=== PATIENT | female | born 1970 | race Caucasian/White ===

== ENCOUNTER 2018-07-06 00:30 | Outpatient (CLI) | payer BC, SELFPAY ==
--- NOTE | 2018-07-06 12:56 | DI.MAMMO_ITS ---
SYMPTOM/DIAGNOSIS: SCREENING, Z12.39 MAMMOGRAMS: Mammograms were interpreted according to the usual protocol including computer analysis with CAD system, tomosynthesis and C view imaging. The breast tissue is of moderate radiodensity. A region of asymmetric increased density is again noted in the upper outer quadrant of the left breast. There is no evidence of a dominant mass. There are no suspicious calcifications and there has been no significant interval change when compared with prior examinations. SUMMARY: No evidence of malignancy, category 1. Yearly screening mammography is recommended. Breast density, Category B. MQSA ASSESSMENT OF FINDINGS: Negative. Category 1. Patient will receive a letter notifying them of these results. BI-RADS category B. There are scattered areas of fibroglandular density.
== END 2018-07-06 00:50 ==
PROVIDERS: PCP Nurse Practitioner; Visit Provider Nurse Practitioner
DX: Z12.31 Encounter for screening mammogram for malignant neoplasm of breast (principal)
CPT/HCPCS: 77063; 77067

== ENCOUNTER 2018-12-17 02:26 | Outpatient (CLI) | payer BC, SELFPAY ==
[2018-12-17 07:35] LABS: HCT 40.5 % (36.0-46.0); HGB 13.8 g/dL (12.0-15.5); Mean Corp. HGB Concentration 34.1 g/dL (32.0-36.0); Mean Corpuscular Hemoglobin 30.5 pg (27.0-33.0); Mean Corpuscular Volume 89.4 fL (80-95); Mean Platelet Volume 9.5 fL (8.0-11.0); Platelet Count 345 x1000/uL (130-400); RBC 4.53 m/cumm (4.00-5.20); RBC Distribution Width 12.9 % (11.7-14.6); White Blood Cell Count 7.91 k/cumm (4.4-10.8)
[2018-12-17 07:50] LABS: Hemoglobin A1C 5.7 % (4.5-6.2)
[2018-12-17 07:57] LABS: BUN 12 mg/dL (7-18); CREATININE 0.79 mg/dL (0.55-1.02); Calcium 8.9 mg/dL (8.5-10.1); Chloride 104 mmol/L (98-107); Glucose 109 mg/dL (70-100); Potassium 3.6 mmol/L (3.5-5.1); Sodium 139 mmol/L (136-145); TSH (W/Ref FT4) 2.74 uIU/mL (0.36-3.74)
== END 2018-12-17 02:46 ==
PROVIDERS: PCP Nurse Practitioner; Visit Provider Family Medicine
DX: E03.9 Hypothyroidism, unspecified (principal); I10 Essential (primary) hypertension; R73.09 Other abnormal glucose
CPT/HCPCS: 36415; 80048; 85027; 83036; 84443

== ENCOUNTER 2019-11-11 09:09 | Outpatient (REF) | payer BC, SELFPAY ==
[2019-11-11 22:20] LABS: Hemoglobin A1C 5.8 % (3.8-5.6)
[2019-11-11 22:41] LABS: ALT 30 U/L (14-59); AST 19 U/L (15-37); Albumin 4.2 g/dL (3.4-5.0); Alkaline Phosphatase 69 U/L (46-116); Anion Gap 9.4 mmol/L (3-11); BUN 17 mg/dL (7-18); Bilirubin, Total 0.4 mg/dL (0.2-1.0); CO2 27.6 mmol/L (21.0-32.0); CREATININE 0.82 mg/dL (0.55-1.02); Calcium 9.3 mg/dL (8.5-10.1); Chloride 104 mmol/L (98-107); Glucose 104 mg/dL (74-106); Potassium 4.4 mmol/L (3.5-5.1); Sodium 141 mmol/L (136-145); TSH (W/Ref FT4) 2.86 uIU/mL (0.36-3.74); Total Protein 6.9 g/dL (6.4-8.2)
== END 2019-11-11 09:29 ==
LOC: NCHCN 09:09
PROVIDERS: PCP Nurse Practitioner; Visit Provider Nurse Practitioner
DX: I10 Essential (primary) hypertension (principal); E03.9 Hypothyroidism, unspecified; R73.03 Prediabetes; E66.9 Obesity, unspecified
CPT/HCPCS: 80053; 83036; 84443

== ENCOUNTER 2020-02-27 00:42 | Outpatient (CLI) | payer BC, SELFPAY ==
--- NOTE | 2020-02-27 16:09 | DI.MAMMO_ITS ---
EXAM: MG MAMMO SCREENING CLINICAL HISTORY: screening,z12.39. TECHNIQUE: Bilateral full field digital CC and MLO mammographic images were obtained with 3D tomosyn thesis and utilizing computer aided detection (CAD). COMPARISON: Prior mammograms dating back to 2015, the most recent being June 2018. FINDINGS: There are no new dominant masses nor malignant appearing microcalcification groups. Asymmetric densit y medially in the right breast is unchanged from prior studies. There is no new architectural distor tion nor skin thickening-retraction. IMPRESSION: No radiographic evidence of malignancy. BI-RADS Category 1 - Negative Breast Density - Category B - Scattered areas of fibroglandular density Breast density Category C or D implies that the patient has dense breast tissue. Dense breast tissue can make it harder to find cancer on a mammogram. Dense breast tissue is also associated with an incr eased risk of breast cancer. This information about the result of the mammogram report was provided to the patient to raise their awareness. Use this report when you speak with the patient about their risks for breast cancer, which includes their family history. At that time, you may recommend additional screening tests (Ultrasoun d or MRI) as these tests may add significant information. A negative radiographic report should not delay biopsy if a dominant or clinically suspicious mass is present. Up to ten percent of cancers are not identified on mammography. A negative report may reinforce clinical impression. Adenosis and dense breasts may obscure an underlying neoplasm. False positive reports average 6 to 10%. Patient will receive a letter notifying them of these results.
== END 2020-02-27 01:02 ==
PROVIDERS: PCP Nurse Practitioner; Visit Provider Obstetrics & Gynecology Gynecology
DX: Z12.31 Encounter for screening mammogram for malignant neoplasm of breast (principal); R92.8 Other abnormal and inconclusive findings on diagnostic imaging of breast
CPT/HCPCS: 77063; 77067

== ENCOUNTER 2020-12-28 16:12 | Outpatient (REF) | payer BC, SELFPAY ==
[2020-12-28 16:15] LABS: ALT 50 U/L (14-59); AST 24 U/L (15-37); Albumin 4.4 g/dL (3.4-5.0); Alkaline Phosphatase 86 U/L (46-116); Anion Gap 9.7 mmol/L (3-11); BUN 13 mg/dL (7-18); Bilirubin, Total 0.7 mg/dL (0.2-1.0); CO2 28.3 mmol/L (21.0-32.0); CREATININE 0.9 mg/dL (0.55-1.02); Chloride 104 mmol/L (98-107); Glucose 96 mg/dL (74-106); Potassium 4.1 mmol/L (3.5-5.1); Sodium 142 mmol/L (136-145); Total Protein 7.4 g/dL (6.4-8.2)
[2020-12-28 16:18] LABS: Hemoglobin A1C 5.9 % (<5.7)
== END 2020-12-28 16:13 | disposition home or self-care (01) ==
LOC: NCHCN 16:12
PROVIDERS: PCP Nurse Practitioner; Visit Provider Nurse Practitioner
DX: R73.03 Prediabetes (principal); I10 Essential (primary) hypertension
CPT/HCPCS: 80053; 83036

== ENCOUNTER → 2021-09-05 02:40 | Outpatient (CLI) | payer BC, SELFPAY ==
--- NOTE | 2021-09-05 07:40 | DI.MAMMO_ITS ---
Exam(s) MAMMO SCREENING EXAM: MAMMO SCREENING CLINICAL HISTORY: SCREENING, Z12.31. TECHNIQUE: Bilateral full field digital CC and MLO mammographic images were obtained with 3D tomosyn thesis and utilizing computer aided detection (CAD). COMPARISON: Prior mammograms were reviewed, the most recent being February 2020.. FINDINGS: There has been no significant change in the appearance and distribution the fibroglandular tissue. There are no new spiculated masses nor malignant appearing microcalcification groups. There is no significant architectural distortion nor skin thickening-retraction. IMPRESSION: No radiographic evidence of malignancy. BI-RADS Category 1 - Negative Breast Density - Category B - Scattered areas of fibroglandular density Breast density Category C or D implies that the patient has dense breast tissue. Dense breast tissue can make it harder to find cancer on a mammogram. Dense breast tissue is also associated with an incr eased risk of breast cancer. This information about the result of the mammogram report was provided to the patient to raise their awareness. Use this report when you speak with the patient about their risks for breast cancer, which includes their family history. At that time, you may recommend additional screening tests (Ultrasoun d or MRI) as these tests may add significant information. A negative radiographic report should not delay biopsy if a dominant or clinically suspicious mass is present. Up to ten percent of cancers are not identified on mammography. A negative report may reinforce clinical impression. Adenosis and dense breasts may obscure an underlying neoplasm. False positive reports average 6 to 10%. Patient will receive a letter notifying them of these results.
== END ==
PROVIDERS: PCP Nurse Practitioner; Visit Provider Nurse Practitioner Family
DX: Z12.31 Encounter for screening mammogram for malignant neoplasm of breast (principal)
CPT/HCPCS: 77063; 77067

== ENCOUNTER 2021-12-23 09:04 | Day surgery (SDC) | payer BC, SELFPAY ==
--- NOTE | 2021-12-23 06:48 | COLE_ITS ---
Colonoscopy Report Date of procedure: 12/23/21 Pre-op diagnosis general: Colon Cancer Screening Post-op diagnosis procedure note: other (sigmoid polyp) Procedure: Colonoscopy with polypectomy Surgeon: Ailyn Louise Anesthesia Type: General:No Airway Estimated blood loss (mL): 3 Pathology: other (sigmoid polyp) Complications: None Disposition: same day Indications: The patient? is a pleasant ? 51-year-old female who is here to discuss her first screening colonoscopy. ? She denies any changes in bowel habits, melena, hematochezia, unintentional weight loss or family history of colon cancer.? The procedure and risks were discussed.? The prep was reviewed in detail.? Risks, benefits and complications have been reviewed. Complications include but are not limited to bleeding, pain, perforation, missed small lesion/polyp, sore throat, aspiration and adverse reaction to the medications. Questions were entertained and answered to their satisfaction and they wished to proceed. No guarantees were given or implied. Prep: Miralax/Dulcolax Procedure Start Time: 11:46 Procedure End Time: 12:20 Retraction Time: 10 minutes Findings: one small polyp Procedure Description: After informed consent was obtained the patient was taken to the procedure room and placed in a left decubitous position. Monitors were applied and a time out was done. The patients name, date of , procedure, allergies to medications and metal in their body was reviewed. The patient was then sedated. Once sedated and comfortable a rectal exam was done. External exam was normal. Internal exam revealed a normal sphincter tone and no palpable masses. The scope was then introduced and retro-flexed. No internal hemorrhoids, polyps or masses were identified on retro-flexion. The scope was then advanced to the cecum with some difficulty due to the patient body habitus. The ileocecal vla ve and appendiceal orifice were identified. The prep was adequate. The scope was then slowly retracted over 10 minutes back into the rectum. Polyps were removed with cold forceps in the sigmoid colon x1. There was no diverticulosis noted. The scope was removed and the patient was woken up and taken back to Same day surgery in stable condition. The patient tolerated the procedure well and there were no immediate complications. Follow up: The patient should follow up in [] years unless they develop changes in bowel habits or other new gastrointestinal complaints.
--- NOTE | 2021-12-23 06:49 | W.PM.DSUDISC ---
Discharge Plan Disposition Patient Disposition: HOME Condition: Good Discharge Details Reason For Visit: colonoscopy Attending Provider: Ailyn Louise Primary Care Provider: Kari Phillips Home Meds and New Rx's Prescriptions: Continued multivitamin Tablet 1 tab PO DAILY cetirizine 5 mg tablet 5 mg PO DAILY PRN labetalol 200 MG tablet 200 mg PO DAILY rizatriptan [Maxalt] 10 MG tablet 10 mg PO PRN aspirin [Aspir-81] 81 MG tablet,delayed release (DR/EC) 81 mg PO DAILY chlorthalidone 25 MG tablet 12.5 mg PO ONCE Label Comments: Takes 1/2 tab daily losartan 25 MG tablet 50 mg PO DAILY ibuprofen [Advil Liqui-Gel] 200 MG capsule 400 mg PO DAILY PRN calcium carb and citrate-vitD3 1 EACH tablet extended release 1 tab PO DAILY Discontinued bisacodyl [Dulcolax (bisacodyl)] 5 mg tablet,delayed release (DR/EC) 5 mg PO ONCE Qty: 4 0RF Rx Instructions: Take according to provider's instructions for colonoscopy prep. polyethylene glycol 3350 17 gram/dose powder 17 g PO ONCE Qty: 238 0RF Rx Instructions: To be taken as directed by prescriber's office for colonoscopy prep. Discharge Instructions Instructions: Colorectal Polyps (DC) Additional Instructions: Findings: 1 polyp Follow up: 5 years Please call if you develop: fevers >101.5 Nausea or Vomiting Abdominal pain that is not transient Rectal bleeding that is more then a tbsp A hard abdomen and inability to pass gas DAY SURGERY UNIT POST ENDOSCOPY INSTRUCTIONS Instructions for everyone who is given Anesthesia: For your safety, please do the following for the next 24 Hours: a. Do not drive or operate dangerous equipment b. Do not drink alcohol beverages or use any recreational drugs for the first 24 hours or while taking pain medications. The medications in your body may have a reaction that can be dangerous. c. Do not make any important decisions or sign any important papers 1. Generally there are no restrictions on your activity after a day or so has gone by, but you may feel a bit fatigued for a few days. 2. After you arrive home you may have a light meal and return to a normal diet as you can tolerate it without feeling sick to your stomach. 3. After surgery, you may feel pain or discomfort. This should be only transient, but if it persists please contact your doctor. 4. If there are any questions regarding the findings of your procedure, please feel free to contact your doctor. 6. If you are unable to contact your doctor with a problem, contact the hospital at [phone]. 7. Continue all your regular medications unless directed otherwise. I understand the above instructions and have no questions. Signature of Patient or Responsible Adult Escort Date/Time Name of Responsible Adult Escort Signature of Nurse Date/Time Activity:: Activity as Tolerated Diet:: As Tolerated Discharge Orders Discharge Orders: Discharge Order (Routine); Ordered 12/23/21 Ordered By: Ailyn Louise
[2021-12-23 09:23] VITALS: BP 151/104; PULSE 95; RESP 20; TEMP 36.6; O2SAT 99
[2021-12-23] MEDS: Lactated Ringers 1,000 ML 80 ML IV (10:20)
--- NOTE | 2021-12-23 11:10 | W.ANESPRE ---
General Info Date of Service Date Performed: 12/23/21 Height: 5 ft 7 in Weight: 118.855 kg Body Mass Index (BMI): 41.0 Surgical Procedure: Operation Date: 12/23/21 10:35 Proposed Procedure Side Surgeon p Colonoscopy Ailyn Louise MD Meds Allergies and Home Medications Allergies Allergy/AdvReac Type Severity Reaction Status Date / Time amlodipine Allergy Mild Swelling/Ed Verified 12/20/21 11:34 kwaku tunafish AdvReac diarrhea Uncoded 12/20/21 11:34 Home Medication Medication Instructions Recorded aspirin 81 mg tablet,delayed 81 mg PO DAILY 10/29/12 release (Aspir-) labetalol 200 mg tablet 200 mg PO DAILY 10/29/12 rizatriptan 10 mg tablet (Maxalt) 10 mg PO PRN 10/29/12 calcium carb,cit ER 600 mg-vit D3 1 tab PO DAILY 08/08/13 12.5 mcg (500 unit) tablet,ext.rel chlorthalidone 25 mg tablet 12.5 mg PO ONCE 08/08/13 ibuprofen 200 mg capsule (Advil 400 mg PO DAILY PRN 08/08/13 Liqui-Gel) losartan 25 mg tablet 50 mg PO DAILY 07/26/15 bisacodyl 5 mg tablet,delayed 5 mg PO ONCE #4 tabs 12/10/21 release (Dulcolax (bisacodyl)) cetirizine 5 mg tablet 5 mg PO DAILY PRN 12/10/21 multivitamin 1 tab PO DAILY 12/10/21 polyethylene glycol 3350 17 17 g PO ONCE #238 grams 12/10/21 gram/dose oral powder Current Visit Medications: Current Medications Generic Name Dose Route Start Last Admin Trade Name Freq PRN Reason Stop Dose Admin Hyoscyamine Sulfate 0.125 mg 12/23/21 06:49 Hyoscyamine 0.125 Mg Sl/Oral/Chew SL DIRECTED PRN Ringer's Solution 1,000 mls @ 80 mls/hr 12/23/21 06:00 12/23/21 10:20 IV 01/19/22 23:59 80 mls/hr INFUSION ADALBERTO Administration IV Miscellaneous Supplies 1 each 12/23/21 06:00 Iv Access IV 01/19/22 23:59 DIRECTED ADALBERTO Ondansetron HCl 4 mg 12/23/21 06:49 Ondansetron 4 Mg/2 Ml Vial IVP Q4H PRN PRN Nausea / Vomiting Sodium Chloride 0 ml 12/23/21 06:00 Normal Saline Flush 10 Ml Syr IV 01/19/22 23:59 PRN PRN Sodium Chloride 0 ml 12/23/21 06:00 Normal Saline 10 Ml Vial IJ 01/19/22 23:59 DIRECTED PRN Sterile Water 0 ml 12/23/21 06:00 Water,Injection,Sterile 10 Ml Vial IJ 01/19/22 23:59 DIRECTED PRN PFSH Active Problems Active Problems: Problem Status Onset Code BMI 40.0-44.9, adult Z68.41 Screening for colon cancer Z12.11 Medical History Medical History Abnormal ultrasound of pelvis (12/22/16) 14 cm mass arising from uterus noted on pelvic ultrasound 11/2016. Will have MARÍA at [facility] thru Dept GynOnc. Abnormal uterine bleeding (AUB) (12/08/16) endometrial ablation 2013 with continued light menses. Has experienced light breakthrough bleeding in 2016. Benign essential hypertension Family history of uterine cancer (02/06/17) sister with stage 1 uterine cancer. Glucose intolerance (08/08/13) Previously on Metformin. Stopped 2013. 10/2015 Fasting glucose 107. Referred to Nutrition services. Glucose intolerance (impaired glucose tolerance) 2017 restarted metformin. Headache (08/08/13) Headache disorder Surgical History Surgical History Abdominal hysterectomy (02/20/17) MARÍA with ovarian preservation. 24w fibroid uterus. [facility]. Ovaries conserved. Endometrial Ablation (08/18/13) HTA ablation with aoc Ligation of fallopian tube (08/18/13) Laparoscopic BTL at time of endometrial ablation with aoc Tobacco Smoking/Tobacco Use Status: Former Tobacco Use Alcohol Alcohol Intake: current Alcohol intake frequency: a few times a week Substance Use Substance use: Never Substance use type: does not use Prental History History 0 Para Hx # Term Pregnancies 0 Multiple births Hx # Pregnancies Ectopic pregnancies AB induced Hx Number of Living Children AB spontaneous Vital Signs and Lab Results Vital Signs Most Recent Vital Signs in EMR: Most Recent Vital Signs Temp Pulse Resp BP Pulse Ox 36.6 C 95 H 20 151/104 H 99 10/03/22 09:23 12/23/21 09:23 12/23/21 09:23 12/23/21 09:23 12/23/21 09:23 Lab Results Blood Type / Crossmatch: No Data to Display Complete Blood Count: No Data to Display Complete Metabolic Panel: No Data to Display Liver Function Panel: No Data to Display Coagulation Panel: No Data to Display Cardiac Panel: No Data to Display Arterial Blood Gas: No Data to Display Venous Blood Gas: No Data to Display Pancreas Panel: No Data to Display Thyroid Panel: No Data to Display Infectious Disease: No Data to Display Blood Cultures: No Data to Display Toxicology Panel: No Data to Display Panel: No Data to Display Anesthesia Assessment and Plan Anesthesia History Personal History: No History of Anesthesia Complications Family History: No Family History of Anesthesia Complications Exercise Tolerance Exercise Tolerance: Metabolic Equivalents>4 Pertinent Negatives Pertinent Negatives: No Symptoms of GERD, No Major Cardiovascular Symptoms or Complaints, No Major Pulmonary Symptoms or Complaints (MARTITA ?) and No History of CVA/TIA Cardiac & Pulmonary Exam Cardiac Exam: Normal S1/S2 Heart Sounds Pulmonary Exam: Clear Bilateral Breath Sounds Implantable Cardiac Device Does patient have a Pacemaker or an ICD?: No Airway Exam Known Difficult Airway: No Mallampati Class: 1 Mouth Opening: Normal (> 3cm) Thyromental Distance: Greater than 3 cm Neck Range of Motion: Full ROM Neck Circumference: Thick Teeth Condition: Normal Dentition Airway Comments: Multiple crowns back ASA Classification ASA Score: ASA 2 Emergency Case?: No NPO Status NPO Status: NPO Clears >2 hours, Solids >8 hours Status Status: History of Hysterectomy Anesthesia Plan Resuscitation Status: Full Code Anesthesia Technique: General Anesthesia Airway Planned: Natural Airway Monitors Used: Standard Monitors
[2021-12-23 11:14] VITALS: BMI 41.0
--- NOTE | 2021-12-23 12:09 | BOWEL_PTH ---
PATIENT: Heather Krishnan LOC: [facility] U#:[id number] AGE/SX: 51/F ROOM: RE12/23/[address]: Ailyn Louise MD : 1970 BED: DIS: 12/23/2021 SPEC #: [id number] RECD: 12/23/21 16:28 STATUS: FRANCES REQ #: [id number] PRADEEP: 12/23/21 12:[address]: Ailyn Louise DEPT: Surgical Specimen RECD BY: Ana Boyd ENTERED: 12/23/21 16:29 SP TYPE: Bowel OTHR DR: Kari Phillips Tissues: 1 - BIOPSY BOWEL Procedures: GROSS AND MICRO LEVEL 4 Comments: [id number]
--- NOTE | 2021-12-23 12:22 | W.ANESPOSTOP ---
Postoperative Evaluation Date, Time and Location Date Performed: 12/23/21 Time Performed: 12:22 Patient Location: Day Surgery Unit Vital Signs Most Recent Imported Vital Signs: Most Recent Vital Signs Temp Pulse Resp BP Pulse Ox 36.6 C 95 H 20 151/104 H 99 12/23/21 09:23 12/23/21 09:23 12/23/21 09:23 12/23/21 09:23 12/23/21 09:23 Most Recent Manually Entered Vital Signs: Adult Blood Pressure: 147/89 Heart Rate: 79 Respirations: 12 Oxygen Saturation (%): 100 Temperature (C): 36.5 C Pain Score (0-10 Scale): 0 Pain Score Most Recent Pain Score: Most Recent Pain Score Pain Level 0 12/23/21 09:23 Assessment Mental Status: Awake (Alert & Oriented to Patient Baseline) Airway and Respiratory Function: Patent airway with normal (patient baseline) respiratory exam Cardiovascular Function: Hemodynamically Stable Hydration Status: Adequately Hydrated Nausea & Vomiting: No Nausea or Vomiting Pain: Pain is tolerable per patient Peripheral Nerve Block: Patient did not receive a nerve block Teaching Patient Teaching: Discussed Safe Use of Pain Medication Given Likely or Known MARTITA
[2021-12-23 12:24] VITALS: BP 147/89; PULSE 78; PULSE 79; RESP 12; RESP 18; TEMP 36.5; TEMPC 36.5; O2SAT 100
[2021-12-23 12:40] VITALS: BP 159/92; PULSE 73; RESP 18; TEMP 36.4; O2SAT 99
== END 2021-12-23 13:19 | disposition home or self-care (01) ==
PROVIDERS: PCP Nurse Practitioner; Visit Provider Surgery
PROC: 0DJD8ZZ Inspection of Lower Intestinal Tract, Via Natural or Artificial Opening Endoscopic (ICD-10-PCS; CPT 45378; principal; 2021-12-23 10:30)
DX: Z12.11 Encounter for screening for malignant neoplasm of colon (principal); K63.5 Polyp of colon
CPT/HCPCS: 45380; 88305

== ENCOUNTER 2022-09-11 15:38 | Outpatient (REF) | payer BC, SELFPAY ==
[2022-09-11 19:26] LABS: ALT 46 U/L (14-59); AST 23 U/L (15-37); Albumin 4.2 g/dL (3.4-5.0); Alkaline Phosphatase 90 U/L (46-116); Anion Gap 7.8 mmol/L (3-11); BUN 14 mg/dL (7-18); Bilirubin, Total 0.5 mg/dL (0.2-1.0); CO2 32.2 mmol/L (21.0-32.0); CREATININE 0.9 mg/dL (0.55-1.02); Calcium 9.7 mg/dL (8.5-10.1); Calculated LDL 117 mg/dL (<100); Chloride 103 mmol/L (98-107); Cholesterol 196 mg/dL (<200); Estimated GFR 76.92 (mL/min/1.73m2); Glucose 125 mg/dL (74-106); HDL Cholesterol 51 mg/dL (40-60); Potassium 3.7 mmol/L (3.5-5.1); Sodium 143 mmol/L (136-145); TSH (W/Ref FT4) 2.57 uIU/mL (0.36-3.74); Total Protein 7.3 g/dL (6.4-8.2); Triglyceride 144 mg/dL (<150)
[2022-09-11 19:33] LABS: Abs Immature Grans 0.02 10^3/uL (0.0-0.06); Absolute Basophil Count 0.06 10^3/uL (0.0-0.2); Absolute Eosinophil Count 0.13 10^3/uL (0.0-0.7); Absolute Lymphocyte Count 2.44 10^3/uL (1.2-3.4); Absolute Monocyte Count 0.52 10^3/uL (0.1-0.8); Basophils % 0.8; Eosinophils % 1.7; HCT 42.2 % (36.0-46.0); HGB 14.3 g/dL (11.2-15.7); Immature Grans % 0.3; Lymphocytes % 32.7; MCH 30.1 pg (27.0-33.0); MCHC 33.9 % (32.0-36.0); MCV 89 fL (80-95); MPV 9.9 fL (8.0-11.0); Neutrophils % 57.5; Platelet Count 366 10^3/uL (130-400); RBC 4.75 10^6/uL (3.93-5.22); RDW 12.6 % (11.7-14.6); RDW-SD 41.1 fL; WBC 7.47 10^3/uL (4.4-10.8)
[2022-09-11 20:10] LABS: Hemoglobin A1C 5.9 % (<5.7)
== END 2022-09-11 15:39 | disposition home or self-care (01) ==
LOC: NCHCN 15:38
PROVIDERS: PCP Nurse Practitioner Family; Visit Provider Nurse Practitioner Family
DX: I10 Essential (primary) hypertension (principal); R73.03 Prediabetes; G43.909 Migraine, unspecified, not intractable, without status migrainosus; Z87.891 Personal history of nicotine dependence; Z79.899 Other long term (current) drug therapy; E66.8 Other obesity; Z68.41 Body mass index [BMI] 40.0-44.9, adult
CPT/HCPCS: 80053; 80061; 83036; 84443; 85025

== ENCOUNTER → 2023-01-29 01:02 | Outpatient (CLI) | payer BC, SELFPAY ==
--- NOTE | 2023-01-29 07:45 | DI.MAMMO_ITS ---
Exam(s) MAMMO SCREENING EXAM: MAMMO SCREENING CLINICAL HISTORY: SCREENING MAMMO FOR BREAST CANCER Z12.31. TECHNIQUE: Bilateral full field digital CC and MLO mammographic images were obtained with 3D tomosyn thesis and utilizing computer aided detection (CAD). COMPARISON: Prior mammograms were reviewed. FINDINGS: There has been no significant change in the appearance and distribution of the fibroglandular tissue. There are no new spiculated masses nor malignant appearing microcalcification groups. There is no significant architectural distortion nor skin thickening-retraction. IMPRESSION: No radiographic evidence of malignancy. BI-RADS Category 1 - Negative Breast Density - Category B - Scattered areas of fibroglandular density Breast density Category C or D implies that the patient has dense breast tissue. Dense breast tissue can make it harder to find cancer on a mammogram. Dense breast tissue is also associated with an incr eased risk of breast cancer. This information about the result of the mammogram report was provided to the patient to raise their awareness. Use this report when you speak with the patient about their risks for breast cancer, which includes their family history. At that time, you may recommend additional screening tests (Ultrasoun d or MRI) as these tests may add significant information. A negative radiographic report should not delay biopsy if a dominant or clinically suspicious mass is present. Up to ten percent of cancers are not identified on mammography. A negative report may reinforce clinical impression. Adenosis and dense breasts may obscure an underlying neoplasm. False positive reports average 6 to 10%. Patient will receive a letter notifying them of these results.
== END ==
PROVIDERS: PCP Nurse Practitioner Family; Visit Provider Nurse Practitioner Family
DX: Z12.31 Encounter for screening mammogram for malignant neoplasm of breast (principal); R92.323 Mammographic fibroglandular density, bilateral breasts
CPT/HCPCS: 77063; 77067

== ENCOUNTER 2024-02-04 01:00 | Outpatient (CLI) | payer BC, SELFPAY ==
--- NOTE | 2024-02-04 | DI.MAMMO_ITS ---
Exam(s) MAMMO SCREENING EXAM: MAMMO SCREENING CLINICAL HISTORY: Screening, Z12.31 TECHNIQUE: Mammograms were interpreted according to the usual protocol including computer analysis w [employer] CAD system, tomosynthesis and C-view imaging. COMPARISON: 2015 through 2022 FINDINGS: The breasts are composed of scattered fibroglandular densities, Breast Density category B. No suspicious masses or suspicious microcalcifications are seen. No skin thickening or abnormal axillary lymph nodes are seen. There has been no significant change from prior exams. IMPRESSION: BI-RADS Category 1, Negative mammogram Yearly screening mammography is recommended. Breast Density - Category B, scattered fibroglandular densities. A negative radiographic report should not delay biopsy if a dominant or clinically suspicious mass is present. Up to ten percent of cancers are not identified on mammography. A negative report may reinforce clinical impression. Adenosis and dense breasts may obscure an underlying neoplasm. False positive reports average 6 to 10%. Patient will receive a letter notifying them of these results.
== END 2024-02-04 01:20 ==
LOC: DI 01:00
PROVIDERS: PCP Nurse Practitioner Family; Visit Provider Nurse Practitioner Family
DX: Z12.31 Encounter for screening mammogram for malignant neoplasm of breast (principal); R92.323 Mammographic fibroglandular density, bilateral breasts
CPT/HCPCS: 77063; 77067

== ENCOUNTER 2024-06-15 18:43 | Outpatient (REF) | payer BC, SELFPAY ==
[2024-06-15 19:59] LABS: Anion Gap 10.6 mmol/L (3-11); BUN 14 mg/dL (7-18); CO2 28.4 mmol/L (21.0-32.0); CREATININE 0.8 mg/dL (0.55-1.02); Calcium 10.1 mg/dL (8.5-10.1); Chloride 104 mmol/L (98-107); Glucose 93 mg/dL (74-106); Potassium 3.9 mmol/L (3.5-5.1); Sodium 143 mmol/L (136-145)
== END 2024-06-15 18:44 | disposition home or self-care (01) ==
LOC: NCHCN 18:43
PROVIDERS: PCP Nurse Practitioner Family; Visit Provider Nurse Practitioner Family
DX: I10 Essential (primary) hypertension (principal)
CPT/HCPCS: 80048

== ENCOUNTER → 2025-03-17 00:09 | Outpatient (CLI) | payer BC, SELFPAY ==
--- NOTE | 2025-03-17 08:40 | DI.MAMMO_ITS ---
Exam(s) MAMMO SCREENING EXAM: MAMMO SCREENING CLINICAL HISTORY: screening Z12.39. TECHNIQUE: Bilateral full field digital CC and MLO mammographic images were obtained with 3D tomosynthesis and utilizing computer aided detection (CAD). COMPARISON: Prior mammograms were reviewed. FINDINGS: There has been no significant change in the appearance and distribution of the fibroglandular tissue. There are no CAD designations. No new right breast findings. In the anterior left breast slightly medial of center there is a E well- defined noncalcified nodule measuring 6 x 6 mm which is most probably benign as it is unchanged from 2016 There is no significant architectural distortion nor skin thickening-retraction. IMPRESSION: Stable benign-appearing findings. No radiographic evidence of malignancy. BI-RADS Category 2 - Benign Findings Breast Density - Category B - There are scattered areas of fibroglandular density. Breast density Category C or D implies that the patient has dense breast tissue. Dense breast tissue can make it harder to find cancer on a mammogram. Dense breast tissue is also associated with an increased risk of breast cancer. This information about the result of the mammogram report was provided to the patient to raise their awareness. Use this report when you speak with the patient about their risks for breast cancer, which includes their family history. At that time, you may recommend additional screening tests (Ultrasound or MRI) as these tests may add significant information. A negative radiographic report should not delay biopsy if a dominant or clinically suspicious mass is present. Up to ten percent of cancers are not identified on mammography. A negative report may reinforce clinical impression. Adenosis and dense breasts may obscure an underlying neoplasm. False positive reports average 6 to 10%. Patient will receive a letter notifying them of these results.
== END ==
LOC: DI 00:09
PROVIDERS: PCP Nurse Practitioner Family; Visit Provider Obstetrics & Gynecology
DX: Z12.31 Encounter for screening mammogram for malignant neoplasm of breast (principal); R92.323 Mammographic fibroglandular density, bilateral breasts
CPT/HCPCS: 77063; 77067